=== PATIENT | male | born 1985 | race African-American/Black ===

== ENCOUNTER 2017-12-19 18:25 | Emergency (ER) | payer SELFPAY ==
[~2017-12-19] VITALS: Ht 182.9 cm; Wt 73.6 kg
[2017-12-19 18:36] VITALS: BP 124/60
--- NOTE | 2017-12-19 18:38 | NUR ---
PT AMBULATES BACK TO THE LOBBY PER DR COLLAZO
--- NOTE | 2017-12-19 21:03 | NUR ---
PATIENT LEFT WITHOUT BEING SEEN BY DR. LOVE. NO FURTHER CARE PROVIDED FOR PATIENT.
== END 2017-12-19 21:03 | disposition left against medical advice (07) ==
LOC: MED 18:25
DX: M79.89 Other specified soft tissue disorders (principal); Z53.21 Procedure and treatment not carried out due to patient leaving prior to being seen by health care provider